=== PATIENT | male | born 2000 | race Caucasian/White ===

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

== ENCOUNTER → 2020-07-30 09:25 | Outpatient (CLI) | payer BC, SELFPAY ==
[2020-07-31 21:53] LABS: COVID19 Sendout Not Detected (Not Detect)
== END ==
PROVIDERS: Family Provider Family Medicine; PCP Family Medicine; Referring Provider Family Medicine; Visit Provider Family Medicine
DX: Z01.812 Encounter for preprocedural laboratory examination (principal)
CPT/HCPCS: 87635

== ENCOUNTER 2022-09-20 14:08 | Observation (INO) | payer BC, SELFPAY ==
[2022-09-20] VITALS (12 sets, daily range): BP systolic 127–155; BP diastolic 60–81; PULSE 83–115; RESP 15–20; TEMP 36.7–37.1; O2SAT 96–99; BMI 31.6
[2022-09-20] MEDS: ONDANSETRON 4 MG ODT PO (14:44)
[2022-09-20 16:40] LABS: Add Manual Diff / Slide Review NO; Basophils Absolute Auto 100 /uL (0-100); Basophils Percent Auto 0.6 % (0-2); Eosinophils Absolute Auto 0 /uL (0-450); Eosinophils Percent Auto 0.2 % (2-4); Hematocrit 43.7 % (41-53); Hemoglobin 15.5 g/dL (13.5-17.5); Lymphocytes Absolute Auto 400 /uL (1100-4500); Lymphocytes Percent Auto 3.3 % (25-40); Mean Corpuscular HGB Conc 35.5 % (30-36); Mean Corpuscular Hemoglobin 31.1 PG (26-34); Mean Corpuscular Volume 87.6 fL (80-100); Monocytes Absolute Auto 900 /uL (0-900); Monocytes Percent Auto 7.4 % (3-14); Neutrophils Absolute Auto 11000 /uL (1500-7000); Neutrophils Percent Auto 88.5 % (50-75); Platelet Count 258 X10^3/uL (150-400); Red Blood Cell Count 4.98 X10^6/uL (4.5-5.9); Red Cell Distribution Width 13.4 % (11.6-14.8); White Blood Cell Count 12.4 X10^3/uL (4.5-11.0)
[2022-09-20 16:52] LABS: Alanine Aminotransferase 28 IU/L (<50); Albumin 4.7 g/dL (3.5-5.0); Albumin Globulin Ratio 1.2 (1.0-2.8); Alkaline Phosphatase 95 U/L (38-126); Aspartate Aminotransferase 26 IU/L (17-59); BUN Creatinine Ratio 16.1 (6-22); Bilirubin Total 1.9 mg/dL (0.2-1.3); Blood Urea Nitrogen 10 mg/dL (9-20); Carbon Dioxide 27 mmol/L (22-32); Chloride 96 mmol/L (98-107); Estimated Glomerular Filt Rate > 60 mL/min (>60); Glucose 106 mg/dL (70-100); HEMOLYSIS 20 (0-50); Lipase 53 U/L (23-300); Potassium 3.5 mmol/L (3.4-5.1); Sodium 136 mmol/L (137-145); Total Protein 8.7 g/dL (6.3-8.2)
--- NOTE | 2022-09-20 20:33 | ED.GENADULT ---
HPI - General Adult General Chief complaint: Abdominal Pain Stated complaint: severe abd pain,sob,chest pain,vomiting Time Seen by Provider: 09/20/22 20:32 Source: patient Mode of arrival: Ambulatory History of Present Illness HPI narrative: 22-year-old young man who is had no significant medical issues presents with 48 hours of headaches, nausea, foggy type feeling, difficulty in peeing (more related to volume rather than inability to void), significant vomiting and diarrhea. Chills but no overt fevers. Not complaining of a sore throat or cough. Related Data Previous Rx's Medication Instructions Recorded adapalene 0.1 % topical gel 0.1 % topical HS ##45 10/24/12 Allergies Allergy/AdvReac Type Severity Reaction Status Date / Time No Known Drug Allergies Allergy Verified 09/20/22 14:36 Review of Systems Review of Systems Narrative: Remainder of complete review of systems is otherwise unremarkable except for that included in the HPI. Patient History Medical History (Updated 09/20/22 @ 22:53 by Elsy Aguilar MD) Concussion Social History Smoking Status: Never smoker Smoking Status: Never smoker alcohol intake frequency: holidays/special occasions only Substance Use Type: marijuana Exam Initial Vital Signs Initial Vital Signs: Vital Signs Temperature 98.7 F 09/20/22 14:36 Pulse Rate 115 H 09/20/22 14:36 Respiratory Rate 15 09/20/22 14:36 Blood Pressure 133/79 09/20/22 14:36 Pulse Oximetry 98 09/20/22 14:36 Oxygen Delivery Method 09/20/22 14:36 General: Moderately ill-appearing but able to cooperate with history and physical. Well-nourished well-developed HEENT: Moist mucous membranes, normal sclera with reactive pupils, Respiratory: Lungs are clear to auscultation, no wheezing no rales no rhonchi. Full and symmetrical air movement Cardiac: Regular rate and rhythm no murmurs no bruits Abdomen: Soft, lower abdominal tenderness with no rebound or guarding, no flank pain Skin: Warm and dry, no rashes Neurologic: Grossly neurologically intact with no obvious asymmetries or abnormalities Extremities: No trauma, well perfused Psych: Cooperative, appropriate insight and affect Course Orders Ordered: ED Orders 09/20/22 14:40 EKG-12 Lead Stat 09/20/22 14:44 Urine Culture Stat Urine Microscopic Stat 09/20/22 16:20 Complete Blood Count AUTO DIFF Stat Comprehensive Metabolic Panel Stat Lipase Stat 09/20/22 20:49 CT abdomen pelvis w con Stat 09/20/22 20:57 Respiratory Panel (Film Array) Stat Hydromorphone HCl (Hydromorphone 0.5 Mg Inj) 0.5 mg IV Q15MIN PRN PRN Reason: Pain, Last Admin: 09/20/22 21:29 Dose: 0.5 mg Documented By: ALBERT Ondansetron HCl (Ondansetron 4 Mg Odt) 4 mg PO NOW PRN PRN Reason: Nausea And Vomiting Last Admin: 09/20/22 14:44 Dose: 4 mg Documented By: JUVENAL Ondansetron HCl (Ondansetron 4 Mg/2 Ml Inj) 4 mg IV NOW PRN PRN Reason: Nausea And Vomiting Discontinued Medications Sodium Chloride (Normal Saline 0.9%) 1,000 mls @ 1,000 mls/hr IV BOLUS ONE Stop: 09/20/22 21:45 Last Admin: 09/20/22 21:30 Dose: 1,000 mls/hr Documented By: ALBERT Ondansetron HCl (Ondansetron 4 Mg/2 Ml Inj) 4 mg IV NOW ONE Stop: 09/20/22 20:47 Last Admin: 09/20/22 21:29 Dose: 4 mg Documented By: ALBERT Vital Signs Vital signs: Vital Signs - 8 hr 09/20/22 14:36 09/20/22 17:01 09/20/22 20:12 Temperature 98.7 F 98.1 F Pulse Rate 115 H 99 H 100 H Respiratory Rate 15 20 Blood Pressure 133/79 130/79 128/60 Pulse Oximetry 98 96 99 Oxygen Delivery Method Room Air Room Air Room Air 09/20/22 20:08 09/20/22 20:09 09/20/22 20:18 Temperature Pulse Rate 93 H 96 H Respiratory Rate Blood Pressure 128/60 Pulse Oximetry 98 98 Oxygen Delivery Method 09/20/22 20:18 09/20/22 20:30 09/20/22 20:30 Temperature Pulse Rate 92 H Respiratory Rate Blood Pressure 133/80 128/69 Pulse Oximetry 97 Oxygen Delivery Method 09/20/22 20:45 09/20/22 20:45 09/20/22 21:09 Temperature Pulse Rate 91 H 95 H Respiratory Rate Blood Pressure 135/70 Pulse Oximetry 96 98 Oxygen Delivery Method 09/20/22 21:30 Temperature Pulse Rate 90 Respiratory Rate Blood Pressure Pulse Oximetry 97 Oxygen Delivery Method Medical Decision Making Lab Data Result diagrams: 09/20/22 16:20 09/20/22 16:20 Labs: Lab Results 09/20/22 09/20/22 09/20/22 Range/Units 14:44 16:20 16:20 WBC 12.4 H (4.5-11.0) X10^3/uL RBC 4.98 (4.5-5.9) X10^6/uL Hgb 15.5 (13.5-17.5) g/dL Hct 43.7 (41-53) % MCV 87.6 (80-100) fL MCH 31.1 (26-34) PG MCHC 35.5 (30-36) % RDW 13.4 (11.6-14.8) % Plt Count 258 (150-400) X10^3/uL Neut % (Auto) 88.5 H (50-75) % Lymph % (Auto) 3.3 L (25-40) % [place] % (Auto) 7.4 (3-14) % Eos % (Auto) 0.2 L (2-4) % Baso % (Auto) 0.6 (0-2) % Neut # (Auto) 27764 H (0983-3435) /uL Lymph # (Auto) 400 L (4949-9688) /uL [place] # (Auto) 900 (0-900) /uL Eos # (Auto) 0 (0-450) /uL Baso # (Auto) 100 (0-100) /uL Sodium 136 L (137-145) mmol/L Potassium 3.5 (3.4-5.1) mmol/L Chloride 96 L (98-107) mmol/L Carbon Dioxide 27 (22-32) mmol/L BUN 10 (9-20) mg/dL Creatinine 0.62 L (0.66-1.25) mg/dL Estimated GFR > 60 (>60) mL/min BUN/Creatinine Ratio 16.1 (6-22) Glucose 106 H (70-100) mg/dL Calcium 9.0 (8.4-10.2) mg/dL Total Bilirubin 1.9 H (0.2-1.3) mg/dL AST 26 (17-59) IU/L ALT 28 (<50) IU/L Alkaline Phosphatase 95 (38-126) U/L Total Protein 8.7 H (6.3-8.2) g/dL Albumin 4.7 (3.5-5.0) g/dL Globulin 4.0 (1.7-4.1) g/dL Albumin/Globulin Ratio 1.2 (1.0-2.8) Lipase 53 (23-300) U/L Urine RBC None seen (0-5/HPF) Urine WBC 0-1/hpf (0-5/HPF) Ur Squamous Epith Cells 0-1 /hpf (0-5/HPF) Amorphous Sediment 1+ Urine Bacteria Occasional (0-1) (None) Urine Mucus 1+ H (Negative) Urine Dip Bedside Urine Glucose Negative Bedside Urine Bilirubin - Negative Bedside Urine Ketone + 15 Urine Specific [place] 1.015 Bedside Urine Occult Blood - Negative Bedside Urine pH 6 Bedside Urine Protein + 30 Bedside Urine Urobilinogen 2+ 4mg Bedside Urine Nitrite - Negative Bedside Urine Leukocytes - Negative Esterase Point of care testing: Urine Dip Bedside Urine Glucose Negative Bedside Urine Bilirubin - Negative Bedside Urine Ketone + 15 Urine Specific [place] 1.015 Bedside Urine Occult Blood - Negative Bedside Urine pH 6 Bedside Urine Protein + 30 Bedside Urine Urobilinogen 2+ 4mg Bedside Urine Nitrite - Negative Bedside Urine Leukocytes - Negative Esterase Imaging Data CT scan - abdomen/pelvis: Radiologist's Impression: FINDINGS: Image quality: Excellent. Lung bases: Unremarkable. Heart: Heart is normal in size. ABDOMEN: Liver: No mass lesion. Gallbladder: Surgically absent. Biliary ducts: No biliary ductal dilatation. Pancreas: Unremarkable. Spleen: Normal in size. Adrenal Glands: No adrenal nodules. Kidneys and Ureters: There is an obstructing stone measuring up to 0.4 cm within the proximal right ureter with associated mild right hydronephrosis. A nonobstructing 0.3 cm stone is also demonstrated within the inferior pole of the right kidney. There is no left hydronephrosis. A 0.3 cm nonobstructing stone is also demonstrated in the left kidney. Left ureter is nondistended. Stomach and Bowel: Stomach, small bowel loops, and colon are normal in caliber and wall thickness. No pericecal inflammatory changes to suggest appendicitis. There is colonic diverticulosis without acute diverticulitis. Peritoneum: No abnormal intraperitoneal fluid. No free air. Ventral Wall: No hernia. Abdominal Nodes: No retroperitoneal or mesenteric adenopathy by size criteria. Vessels: Aorta and inferior vena cava are normal in size. PELVIS: Pelvic Organs: Unremarkable. Bladder: Unremarkable. Pelvic Nodes: No enlarged lymph nodes. Miscellaneous: No inguinal hernias are seen. Bones: Visualized osseous structures demonstrate no suspicious focal lesions. IMPRESSION: 1. Obstructing proximal right ureteral stone with associated mild right hydronephrosis. 2. Additional nonobstructing bilateral renal stones as described. Dictated by: Ramakrishna Chapa M.D. on 09/20/2022 at 20:14 MDM Narrative Medical decision making narrative: 22-year-old gentleman with upper respiratory symptoms and lower abdominal pain for about 2 days. Quite a bit of vomiting. CT scan shows an acute appendicitis with periappendiceal fluid was suggestion of perforation without any free air. He is also positive for COVID, parainfluenza virus and respiratory syncytial virus. There is no respiratory distress. In the emergency department has been given fluids, Zofran, pain medication. CT scan is reviewed with Dr. Nicole. Patient will be admitted to Dr. Nicole and transition orders have been written. Findings reviewed with patient and his parents questions are answered. Discharge Plan Departure Patient Disposition: Admitted as Observation Clinical Impression: Acute appendicitis, COVID-19, Respiratory syncytial virus, Parainfluenza Admit Date/Time: 09/20/22 22:48 Admit Provider: Alejandro Nicole
--- NOTE | 2022-09-20 20:49 | DI.CT.S_ITS ---
PROCEDURE: CT ABDOMEN PELVIS W CON INDICATIONS: lower abdominal pain TECHNIQUE: After the administration of IV contrast, axial sections were acquired from the lung bases to the pubic symphysis. Coronal and sagittal reformats were performed. For radiation dose reduction, the following was used: automated exposure control, adjustment of mA and/or kV according to patient size. COMPARISON: None. FINDINGS: Image quality: Excellent. Lung bases: Unremarkable. Heart: Heart is normal in size. ABDOMEN: Liver: No mass lesion. Gallbladder: Within normal limits without calcified gallstones. Biliary ducts: No biliary ductal dilatation. Pancreas: Unremarkable. Spleen: Spleen is mildly enlarged, measuring up to 14.1 cm. Adrenal Glands: No adrenal nodules. Kidneys and Ureters: No hydronephrosis. Stomach and Bowel: Stomach, small bowel loops, and colon are normal in caliber and wall thickness. The appendix is enlarged, measuring up to 1.2 cm with wall thickening and periappendiceal fat stranding consistent with acute appendicitis. There is a small amount of adjacent free fluid. No free air. No discrete loculated abscess collection. Mild colonic diverticulosis is present without acute diverticulitis. Ventral Wall: No hernia. Abdominal Nodes: No retroperitoneal or mesenteric adenopathy by size criteria. Vessels: Aorta and inferior vena cava are normal in size. PELVIS: Pelvic Organs: Unremarkable. Bladder: Unremarkable. Pelvic Nodes: No enlarged lymph nodes. Miscellaneous: No inguinal hernias are seen. Bones: Visualized osseous structures demonstrate no suspicious focal lesions. IMPRESSION: 1. Findings consistent with acute appendicitis. A small amount of adjacent free fluid raises the possibility of perforation. No discrete abscess or free air identified. Findings discussed with Dr. Aguilar on 09/20/2022 at 10:00 p.m.. Dictated by: Ramakrishna Chapa M.D. on 09/20/2022 at 22:00 Approved by: Ramakrishna Chapa M.D. on 09/20/2022 at 22:04
[2022-09-20 20:57] LABS: Amorphous Sediment Urine 1+; Bacteria Urine Occasional (0-1); RBC Urine None Seen (0-5/HPF); Squamous Epithelial Cell Urine 0-1 /HPF (0-5/HPF); WBC Urine 0-1/HPF (0-5/HPF)
[2022-09-20 20:58] LABS: Mucus Urine 1+ (Negative)
[2022-09-20] MEDS: HYDROMORPHONE 0.5 MG INJ IV (21:29)
[2022-09-20] MEDS: ONDANSETRON 4 MG/2 ML INJ IV (21:29)
[2022-09-20] MEDS: SODIUM CHLORIDE 0.9% 1,000 ML 1000 ML IV (21:30)
[2022-09-20 22:28] LABS: Adenovirus Not Detected (Not Detect); B. parapertussis Not Detected (Not Detecte); Bordetella pertussis Not Detected (Not Detecte); Chlamydophila pneumoniae Not Detected (Not Detect); Coronavirus 229E Not Detected (Not Detect); Coronavirus HKU1 Not Detected (Not Detect); Coronavirus NL 63 Not Detected (Not Detect); Coronavirus OC43 Not Detected (Not Detect); Human Metapneumovirus Not Detected (Not Detect); Human Rhinovirus/Enterovirus Not Detected (Not Detect); Influenza A Not Detected (Not Detect); Influenza B Not Detected (Not Detect); Mycoplasma pneumoniae Not Detected (Not Detect); Parainfluenza Virus 1 Not Detected (Not Detect); Parainfluenza Virus 2 Detected (Not Detect); Parainfluenza Virus 3 Not Detected (Not Detect); Parainfluenza Virus 4 Not Detected (Not Detect); Respiratory Syncytial Virus Detected (Not Detect)
[2022-09-20 22:30] LABS: SARS- CoV-2 Detected (Not Detecte)
[2022-09-20] MEDS: PIPERACILLIN/TAZO 4.5 GM in SODIUM CHLORIDE 0.9% 100 ML IV (23:45)
[2022-09-20] MEDS: SODIUM CHLORIDE 0.9% 1,000 ML 125 ML IV (23:45)
[2022-09-21] VITALS (43 sets, daily range): BP systolic 110–131; BP diastolic 55–80; PULSE 60–85; RESP 11–16; TEMP 37.2; O2SAT 94–98
--- NOTE | 2022-09-21 | PATH_ITS ---
[facility] Accession Number: [id number] . 01 Material submitted: . appendix - APPENDIX . 01 Diagnosis: Appendix, Appendectomy: Acute appendicitis with rupture and abscess formation. Acute serositis also present. Negative for dysplasia and malignancy. [facility] 09/26/2022 1407 Local . 01 Electronically signed: . Luis A Houser MD, Pathologist NPI- [id number] . 01 Gross description: . The specimen is received in formalin labeled with the patient's name, , and appendix, and consists of two fragments of disrupted appendix reapproximated to measure 6.2 x 0.9 cm. The identifiable serosa is walker-brown and roughened with an entire full-thickness disruption identified creating two halves. The attached mesoappendix extends out to 1.7 cm. The surgical margin is received closed with audie, which are removed, and the margin is inked blue. Sectioning reveals a patent lumen filled with walker-lynn semi-solid material ranging from 0.2 to 0.3 cm in diameter. The sethi are walker-lynn and average 0.4 cm thick. No lesions are identified. Rod Machine Operator sections to include the surgical margin, one-half of the bisected distal tip, and cross-sections to include en face area of full-thickness disruption is submitted in cassette A1. ([id number]) /MRV 09/22/2022 1725 Local . 01 Pathologist provided ICD-10: K35.30 . 01 CPT . 611889 Specimen Comment: A courtesy copy of this report has been sent to [phone] Performed at: 01 [facility] [address] [place] [address] [address] [facility] [place], [place], [place] [id number] MD Ramakrishna Werner MD Phone: [phone]
[2022-09-21] MEDS: PIPERACILLIN/TAZO 3.375 GM in SODIUM CHLORIDE 0.9% 100 ML IV ×2 (03:44→11:42)
[2022-09-21] MEDS: SODIUM CHLORIDE 0.9% 1,000 ML 125 ML IV (10:09)
--- NOTE | 2022-09-21 13:40 | PM.HP.1 ---
History of Present Illness History of Present Illness Date Patient Seen: 09/21/22 Time Patient Seen: 13:40 Chief complaint: severe abd pain,sob,chest pain,vomiting Narrative: 22-year-old man who presented to the emergency room yesterday with 1 day of abdominal pain. He describes right lower quadrant abdominal pain with associated emesis. CT abdomen pelvis demonstrates dilated appendix with a small amount of free fluid consistent with acute appendicitis. At admission WBC 12 labs otherwise unremarkable. He was also found to have RSV, parainfluenza and COVID. He has been coughing but is not short of breath. Patient History Medical History Concussion Family & Social History Safety & Behavioral: Feels Safe in Current Yes Environment Been Physically Hurt or No Threatened By a Person Tobacco & Substance use: Smoking Status Never smoker alcohol intake frequency holiday/special occasion Substance Use Type marijuana Meds Home Medications and Allergies Home Medications Medication Instructions Recorded Confirmed Type adapalene 0.1 % topical gel 0.1 % topical HS ##45 10/24/12 Rx acetaminophen 325 mg capsule 650 mg PO QID PRN pain #60 caps 09/21/22 Rx (Tylenol) ibuprofen 200 mg tablet 400 mg PO Q6H #60 tabs 09/21/22 Rx oxycodone 5 mg tablet 5 mg PO Q6H PRN pain #20 tabs 09/21/22 Rx Allergies Allergy/AdvReac Type Severity Reaction Status Date / Time No Known Drug Allergies Allergy Verified 09/20/22 14:36 Exam Vital Signs (past 8 hours): - 09/21/22 06:00 09/21/22 06:30 09/21/22 07:00 Pulse Rate 70 66 71 Pulse Oximetry 96 96 96 09/21/22 07:30 09/21/22 08:00 09/21/22 08:30 Pulse Rate 74 73 76 Pulse Oximetry 96 96 96 09/21/22 09:00 09/21/22 09:30 09/21/22 10:00 Pulse Rate 70 72 82 Pulse Oximetry 96 96 97 09/21/22 10:30 09/21/22 11:00 09/21/22 11:31 Pulse Rate 68 63 76 Pulse Oximetry 96 96 97 09/21/22 12:00 09/21/22 12:30 Pulse Rate 73 60 Pulse Oximetry 97 96 Oxygen Delivery Method Room Air Narrative Exam Narrative: GENERAL: Adult male in no apparent distress HEENT: No scleral icterus CV: Regular rate, no peripheral edema LUNGS: No increased work of breathing. Patient speaks in full sentences without oxygen support. ABDOMEN: Tender right lower quadrant no peritonitis NEURO: Nonfocal, normal strength throughout, normal gait. SKIN: Warm and dry Objective Labs Result Diagrams: 09/20/22 16:20 09/20/22 16:20 Labs: Laboratory Results - last 24 hr 09/20/22 09/20/22 09/20/22 14:44 16:20 16:20 WBC 12.4 H RBC 4.98 Hgb 15.5 Hct 43.7 MCV 87.6 MCH 31.1 MCHC 35.5 RDW 13.4 Plt Count 258 Neut % (Auto) 88.5 H Lymph % (Auto) 3.3 L [place] % (Auto) 7.4 Eos % (Auto) 0.2 L Baso % (Auto) 0.6 Neut # (Auto) 59886 H Lymph # (Auto) 400 L [place] # (Auto) 900 Eos # (Auto) 0 Baso # (Auto) 100 Sodium 136 L Potassium 3.5 Chloride 96 L Carbon Dioxide 27 BUN 10 Creatinine 0.62 L Estimated GFR > 60 BUN/Creatinine Ratio 16.1 Glucose 106 H Calcium 9.0 Total Bilirubin 1.9 H AST 26 ALT 28 Alkaline Phosphatase 95 Total Protein 8.7 H Albumin 4.7 Globulin 4.0 Albumin/Globulin Ratio 1.2 Lipase 53 Urine RBC None seen Urine WBC 0-1/hpf Ur Squamous Epith Cells 0-1 /hpf Amorphous Sediment 1+ Urine Bacteria Occasional (0-1) Urine Mucus 1+ H Chlamy pneumoniae PCR Adenovirus (PCR) B. pertussis DNA (PCR) B.parapertussis DNA PCR Coronavirus OC43 (PCR) Coronavirus HKU1 (PCR) Coronavirus 229E (PCR) SARS-CoV-2 (PCR) Coronavirus NL63 (PCR) Human Metapneumovir PCR Influenza Type A (PCR) Influenza Type B (PCR) M. pneumoniae (PCR) Parainfluenza 1 (PCR) Parainfluenza 2 (PCR) Parainfluenza 3 (PCR) Parainfluenza 4 (PCR) RSV (PCR) Entero/Rhino (PCR) 12/07/22 20:57 WBC RBC Hgb Hct MCV MCH MCHC RDW Plt Count Neut % (Auto) Lymph % (Auto) [place] % (Auto) Eos % (Auto) Baso % (Auto) Neut # (Auto) Lymph # (Auto) [place] # (Auto) Eos # (Auto) Baso # (Auto) Sodium Potassium Chloride Carbon Dioxide BUN Creatinine Estimated GFR BUN/Creatinine Ratio Glucose Calcium Total Bilirubin AST ALT Alkaline Phosphatase Total Protein Albumin Globulin Albumin/Globulin Ratio Lipase Urine RBC Urine WBC Ur Squamous Epith Cells Amorphous Sediment Urine Bacteria Urine Mucus Chlamy pneumoniae PCR Not detected Adenovirus (PCR) Not detected B. pertussis DNA (PCR) Not detected B.parapertussis DNA PCR Not detected Coronavirus OC43 (PCR) Not detected Coronavirus HKU1 (PCR) Not detected Coronavirus 229E (PCR) Not detected SARS-CoV-2 (PCR) Detected H Coronavirus NL63 (PCR) Not detected Human Metapneumovir PCR Not detected Influenza Type A (PCR) Not detected Influenza Type B (PCR) Not detected M. pneumoniae (PCR) Not detected Parainfluenza 1 (PCR) Not detected Parainfluenza 2 (PCR) Detected H Parainfluenza 3 (PCR) Not detected Parainfluenza 4 (PCR) Not detected RSV (PCR) Detected H Entero/Rhino (PCR) Not detected Assessment & Plan Assessment and plan (1) Acute appendicitis: Qualifiers: Acute appendicitis type: with localized peritonitis Appendicitis abscess presence: unspecified whether abscess present Appendicitis gangrene presence: without gangrene Appendicitis perforation presence: unspecified whether perforation present Qualified Code(s): K35.30 - Acute appendicitis with localized peritonitis, without perforation or gangrene Status: Acute Assessment & Plan narrative: 22-year-old male with RSV, parainfluenza and COVID who presents with acute appendicitis. CT abdomen pelvis reviewed demonstrates dilated appendix with small amount of free fluid no abscess. We discussed management including nonoperative management with antibiotics and surgical intervention. Following discussion preference is to proceed with laparoscopic appendectomy. Overview of the operation was discussed with the patient. Operative risks including bleeding, infection, damage to surrounding structures were discussed. Questions have been answered he is in agreement with this plan. Provides his verbal and written consent to proceed. Time Spent With Patient Critical Care time: I spent a total of [] minutes of critical care time on this patient's care today; this time is exclusive of procedural time.
[2022-09-21] MEDS: ONDANSETRON 4 MG/2 ML INJ IV (13:54)
[2022-09-21] MEDS: HYDROMORPHONE 0.5 MG INJ IV (14:03)
--- NOTE | 2022-09-21 15:05 | SUR.OPER ---
Supine on padded OR bed, head on pillow, right arm secured on padded arm boards at <90 degrees abduction, left arm padded with gel pad and tucked at side, legs uncrossed, safety belt at thigh, tape over blanket over lower legs. Gel pad under bilateral heels.
[2022-09-21] MEDS: LACTATED RINGERS 1,000 ML 42 ML IV (15:13)
[2022-09-21] MEDS: BUPIVACAINE 0.25% (PF) VIAL 30 ML INJ (15:19)
--- NOTE | 2022-09-21 16:03 | PM.OP.1 ---
Operative Date/Time/Diagnoses Date of procedure: 09/21/22 Time of procedure: 16:03 Pre-op diagnosis: Acute appendicitis Post-op diagnosis: same Procedure & Clinicians Procedure: Laparoscopic appendectomy Same procedure as scheduled: Yes Indications: 22-year-old male with influenza RSV COVID presents with acute appendicitis. CT demonstrates dilated appendix with small amount of fluid no abscess. Surgeon: Alejandro Nicole Anesthesia Type: General Operative Notes Findings: Tip of the appendix is necrotic. Basis viable. No perforation. Dilated loops of small bowel- reactive. Specimen fractured in the Endo-Catch bag during retrieval Specimen(s): other (Appendix) Estimated Blood Loss (mL): 30 Procedure in detail: Patient was brought to the operating room placed supine on the table. Bilateral lower extremity compression devices were applied. Anesthesia was induced and they intubated with an endotracheal tube. They received 3.375 g of Zosyn prior to skin incision. The left arm was tucked and appropriately padded. They were prepped and draped in sterile fashion. Time-out was performed. An infraumbilical incision was made the umbilical stalk was grasped and elevated and incision was made and the abdomen was entered atraumatically. A 12 mm balloon trocar was then placed through the incision and pneumoperitoneum of 14 mm Hg was established. The scope was then inserted and the abdomen inspected, there was no evidence of injury upon entry. The loops of small bowel were significantly dilated and inflamed. Two 5 mm ports were placed under direct visualization, one in the left lower quadrant and second in the lower midline. A thorough laparoscopic evaluation was performed inspecting all four quadrants. The patient was then tilted right side up. The small bowel was then swept to the upper aspect of the abdomen. The tenie were followed to the base of the cecum where the appendix was identified. Tip of the appendix was necrotic but not perforated. The base of it was viable.. The appendix was grasped and a window within the mesentery was made at the base of the appendix using the [place] dissector with care to avoid injuring the cecum. The mesoappendix was then divided using the endo-stapler with a staple length of 2.5 mm-white load. The mesenteric staple line was inspected for hemostasis. The appendix was then amputated flush at the cecum using the endo-stapler blue load. The specimen was retrieved using a endoscopic retrieval bad through the 10 mm infra-umbilical port. The right paracolic gutter and the pouch of Nhan were irrigated The 5 mm ports were then removed under direct visualization. The umbilical fascial incision was closed with 0 Vicryl in a figure-eight fashion. The skin wounds were irrigated and closed with 4-0 Monocryl followed by the application of Dermabond. Sponge instrument count at the end of the operation was correct. The patient tolerated procedure well was extubated and transferred to the postoperative care unit in stable condition. Complications: none Post-operative Condition: stable Disposition: same day surgery
--- NOTE | 2022-09-21 16:05 | SUR.PHASEI ---
Patient being recovered in OR suite 4 due to positive COVID, Positive RSV and Positive Influenza.
[2022-09-21] MEDS: OXYCODONE/ACETAMINOPHEN 5/325 TABLET 1 TAB PO (16:13)
== END 2022-09-21 16:41 | disposition home or self-care (01) ==
LOC: ED 20:32 → AC 22:48
PROVIDERS: Emergency Medicine; Admitting Provider Surgery; Emergency Provider Emergency Medicine; Family Provider Family Medicine; PCP Family Medicine; Visit Provider Surgery
PROC: 0DTJ4ZZ Resection of Appendix, Percutaneous Endoscopic Approach (ICD-10-PCS; CPT 44970; principal; 2022-09-21 14:30)
DX: K35.80 Unspecified acute appendicitis (principal); U07.1 COVID-19; B97.4 Respiratory syncytial virus as the cause of diseases classified elsewhere
CPT/HCPCS: 44970; 74177; 80053; 81003; 81015; 83690; 85025; 87086; 87633; 93005; 93010; 96365; 96366; 96375; 96376; 99225; 99284; G0378; J1100; J1170; J1885; J2250; J2405; J2543; J2704; J3010; Q9967

== ENCOUNTER → 2025-01-15 17:31 | Outpatient (ROUT) | payer BC, SELFPAY ==
[2025-01-15 18:12] LABS: Influenza A - CEPHEID Flu A NEGATIVE (NEGATIVE); Influenza B - CEPHEID Flu B NEGATIVE (NEGATIVE); Respiratory Syncytial Virus Negative (Negative)
[2025-01-15 18:28] LABS: COVID-19 CEPHEID 4-PLEX PCR Negative (Negative)
== END ==
LOC: LAB 17:31
PROVIDERS: Family Provider Family Medicine; PCP Family Medicine; Visit Provider Family Medicine
DX: R05.1 Acute cough (principal)
CPT/HCPCS: 0241U